=== PATIENT | female | born 1985 | race Caucasian/White ===

== ENCOUNTER 2018-03-30 22:48 | Emergency (ER) | payer OTHER ==
[2018-03-30 22:55] VITALS: BP 133/77; PULSE 74; TEMP 98.4; BMI 34.9
--- NOTE | 2018-03-31 01:52 | PDOC ---
History of Present Illness - History of Present Illness Initial Comments: 03/31/18 02:07 Patient is a 33 year old female with no significant past medical history, who presents to the ED with complaints of head pain that began 3 months ago. Patient reports experiencing chronic head pain that began x3 months ago and has been normally intermittent. She does not rate head pain on a scale but does state at baseline the head pain is not strong but states recently the head pain has increased in intensity prompting her to come into the ED for further evaluation. Patient reports taking Tylenol for the head pain with minimal relief, stating that the head pain although is intense, is not the worse pain she has ever had. Denies chest pain, sob. Denies photophobia, phonophobia. Denies lightheadedness , dizziness. Denies contact with sick individuals, out of state travelling. Denies trauma to affected area. Denies any other symptoms. Allergies: Penicillin. Social history: No smoking. No alcohol. No illicit drugs. Surgical history: None PMD: None <Vinicius Wilder - Last Filed: 03/31/18 02:07> - General History Source: Patient <Kiet Watts - Last Filed: 03/31/18 19:33> - General Chief Complaint: Headache Stated Complaint: HEADACHE Time Seen by Provider: 03/31/18 01:48 Past History <Vinicius Wilder - Last Filed: 03/31/18 02:07> - Past Medical History Asthma: No Cancer: No Cardiac Disorders: No COPD: No Diabetes: No HTN: No Seizures: No Thyroid Disease: No - Suicide/Smoking/Psychosocial Hx Smoking History: Never smoked Hx Alcohol Use: No Drug/Substance Use Hx: No Hx Substance Use Treatment: No <Kiet Watts - Last Filed: 03/31/18 19:33> - Past Medical History Allergies/Adverse Reactions: Allergies Allergy/AdvReac Type Severity Reaction Status Date / Time Penicillins Allergy Verified 03/30/18 22:55 Home Medications: Ambulatory Orders Ferrous Sulfate [Feosol] 325 mg PO DAILY 06/27/16 Glyburide/Metformin HCl [Glyburide-Metformin 2.5-500 mg] 1 each PO TID 06/27/16 Vitamins (Sjr) - 1 tab PO DAILY 06/27/16 Ibuprofen 800 mg PO TID #30 tablet 03/31/18 Metoclopramide HCl [Reglan] 10 mg PO TID #30 tablet 03/31/18 Review of Systems - Review of Systems Able to Perform ROS?: Yes Comments:: 03/31/18 02:07 CONSTITUTIONAL: +Head Pain. Absent: fever, no chills, no fatigue EYES: Absent: visual changes ENT: Absent: ear pain, no sore throat CARDIOVASCULAR: Absent: chest pain, no palpitations RESPIRATORY: Absent: cough, no SOB GI: Absent: abdominal pain, no nausea, no vomiting, no constipation, no diarrhea GENITOURINARY: Absent: dysuria, no frequency, no hematuria MUSCULOSKELETAL: Absent: back pain, no arthralgia, no myalgia SKIN: Absent: rash <Vinicius Wilder - Last Filed: 03/31/18 02:07> *Physical Exam - Vital Signs Last Vital Signs Temp Pulse Resp BP Pulse Ox 98.4 F 74 18 133/77 98 03/30/18 22:54 03/30/18 22:54 03/30/18 22:54 03/30/18 22:54 03/30/18 22:54 - Physical Exam Comments: 03/31/18 02:07 GENERAL: Well-appearing, well-nourished. No apparent distress. HEENT: Normocephalic, atraumatic. PERRL, EOM intact. CARDIOVASCULAR: Normal S1, S2. Regular rate and rhythm. PULMONARY: Clear to auscultation bilaterally. ABDOMEN: Soft, non-distended, non-tender. EXTREMITIES: Normal ROM in all four extremities. No gross deformities. SKIN: Warm, dry. No rash NEUROLOGICAL: No focal neurological deficits. <Vinicius Wilder - Last Filed: 03/31/18 02:07> - Vital Signs Last Vital Signs Temp Pulse Resp BP Pulse Ox 98.4 F 74 18 133/77 98 03/30/18 22:54 03/30/18 22:54 03/30/18 22:54 03/30/18 22:54 03/30/18 22:54 <Kiet Watts - Last Filed: 03/31/18 19:33> Moderate Sedation - Procedure Monitoring Vital Signs: Vital Signs Temp Pulse Resp BP Pulse Ox 98.4 F 74 18 133/77 98 03/30/18 22:54 03/30/18 22:54 03/30/18 22:54 03/30/18 22:54 03/30/18 22:54 <Vinicius Wilder - Last Filed: 03/31/18 02:07> - Procedure Monitoring Vital Signs: Vital Signs Temp Pulse Resp BP Pulse Ox 98.4 F 74 18 133/77 98 03/30/18 22:54 03/30/18 22:54 03/30/18 22:54 03/30/18 22:54 03/30/18 22:54 <Kiet Watts - Last Filed: 03/31/18 19:33> Medical Decision Making - Medical Decision Making 03/31/18 19:32 Dr. Watts: The scribe's documentation has been prepared under my direction and personally reviewed by me in its entirery. I confirm that the note above accurately reflects all work, treatment, procedures, and medical decision making performed by me. <Kiet Watts - Last Filed: 03/31/18 19:33> *DC/Admit/Observation/Transfer - Attestations Scribe Attestion: 03/31/18 02:08 Documentation prepared by Vinicius Wilder, acting as medical doctor nuclear medicine for Kiet Watts MD/DO. <Vinicius Wilder - Last Filed: 03/31/18 02:07> - Discharge Dispostion Decision to Admit order: No <Kiet Watts - Last Filed: 03/31/18 19:33> Diagnosis at time of Disposition: Headache Qualifiers: Headache type: unspecified Headache chronicity pattern: unspecified pattern Intractability: not intractable Qualified Code(s): R51 - Headache - Discharge Dispostion Disposition: HOME Condition at time of disposition: Stable - Prescriptions Prescriptions: Ibuprofen 800 mg PO TID #30 tablet Metoclopramide HCl [Reglan] 10 mg PO TID #30 tablet - Referrals Referrals: Rich Anderson MD [Staff Physician] - - Patient Instructions Printed Discharge Instructions: DI for Headache Additional Instructions: Please follow up with the doctor referred to you if your symptoms become worse. Return if any problems Print Language: ENGLISH
[2018-03-31] MEDS ORDERED: METOCLOPRAMIDE HCL 10 MG TABLET (FP) PO ONE ×2 (01:53→02:27)
[2018-03-31] MEDS ORDERED: IBUPROFEN 400 MG TABLET (FP) PO ONE ×2 (01:53→02:26)
== END 2018-03-31 03:38 | disposition home or self-care (01) ==
LOC: JER 22:48
DX: R51 Headache (principal)
CPT/HCPCS: 70450-TC; 84703; 99281-25